=== PATIENT | female | born 1930 | race Caucasian/White ===

== ENCOUNTER 2016-10-04 14:56 | Inpatient (IN) | payer OTHER ==
--- NOTE | 2016-10-04 15:40 | ED EKG INTERP ---
EKG Interpretation - EKG Time of EKG reading by physician:: 15:24 EKG Read and Signed by:: Frank Arteaga EKG Interpretation (*Must complete 3 of following elements*): Abnormal Rate: 72 Rhythm: Normal sinus [place]: left QRS: LBB
[2016-10-04] MEDS ORDERED: MERREM 500 MG in NS 50 ML IV ONE (16:47)
[2016-10-04] MEDS ORDERED: NS 1,000 ML IV ONE (16:49)
[2016-10-04] MEDS ORDERED: NS 500 ML IV ONE (16:49)
[2016-10-04 17:10] LABS: MANUAL DIFF NEEDED? NO
[2016-10-04 17:10] LABS: URINE SOURCE CATH
[2016-10-04 17:18] LABS: BILIRUBIN URINE NEGATIVE (NEGATIVE); BLOOD URINE MODERATE (NEGATIVE); COLOR ORANGE; GLUCOSE URINE NEGATIVE (NEGATIVE); LEUKOCYTES URINE LARGE (NEGATIVE); NITRITE URINE NEGATIVE (NEGATIVE); PROTEIN URINE 100 mg/dL (NEGATIVE); SP GRAVITY URINE 1.013; TURBIDITY URINE TURBID (CLEAR); UROBILINOGEN URINE NORMAL (NORMAL)
[2016-10-04 17:21] LABS: URINE MICRO REVIEW NEEDED? YES
[2016-10-04 17:22] LABS: UR EPITHELIAL CELLS <10 /HPF (<10); URINE BACTERIA NEGATIVE /HPF; URINE CULTURE NEEDED? YES; URINE WBC TNTC /HPF (<10)
[2016-10-04 17:23] LABS: BASO% 0.2 % (0.0-0.8); EOS# 0.28 X1000 (0.0-0.7); EOS% 3.1 % (0.0-10.0); HEMATOCRIT 31.4 % (37.0-47.0); HEMOGLOBIN 9.8 g/dL (12.0-16.0); IMM GRAN# 0.06 X1000 (0.0-0.04); IMM GRAN% 0.7 % (0.0-0.5); LYMPH% 32.6 % (20.5-51.1); MCH 29.3 PG (27-31); MCHC 31.2 g/dL (33-37); MONO# 0.59 X1000 (0.11-0.59); MONO% 6.6 % (1.7-9.3); MPV 10.9 FL (7.4-10.4); NEUT% 56.8 % (42.2-75.2); PLT 300 X1000 (130-400); RBC 3.34 XMIL (4.2-5.4)
[2016-10-04 17:36] LABS: URINE CASTS EPITHELIAL PRESENT
[2016-10-04 18:20] LABS: ALBUMIN 3.5 g/dL (3.5-5.0); CALCIUM 8.6 mg/dL (8.8-10.2); POTASSIUM 3.8 mmol/L (3.5-5.1); TOTAL BILIRUBIN 0.17 mg/dL (0.20-1.00); TOTAL PROTEIN 7.5 g/dL (6.3-8.3)
--- NOTE | 2016-10-04 18:35 | HISTORY AND PHYSICAL ---
CHIEF COMPLAINT: Sent from the senior living for acute exacerbation of chronic kidney disease. HISTORY OF PRESENT ILLNESS: Ms. Silva is an 86-year-old, white female with frequent admissions here for recurrent acute pyelonephritis and exacerbation of chronic kidney disease. She has a long history of bilateral ureteral obstructions and her urologist is Dr. Florentin Estrada. He typically replaces the stents every 3-4 months. The last time this was done was June of last year. She was scheduled for replacement next week. Apparently, she was noted to have some cloudy urine at the senior living and lab work was done and Dr. Estrada, when he looked at the results, told them to send her to the hospital but I have no way to get these results and his office is already closed this afternoon. Her son is with her and says that for several days she has had decreased energy and spent most of the day in bed instead of getting up and going to the dining room for meals. She has been a little more cantankerous and confused. The symptoms are typical for her previous episodes of metabolic encephalopathy due to the pyelonephritis and dehydration. He is not aware of any fever. She is alert but confused. Unable to provide any meaningful history herself. She also has a history of type 2 diabetes mellitus, Alzheimer' s dementia, essential hypertension, dyslipidemia. PAST MEDICAL HISTORY: Chronic renal failure, stage 4, sometimes stage 5 depending her hydration status. She has a history of diabetes recently treated with very low-dose insulin. She has had multiple recurrent UTIs, some ESBL positive requiring meropenem for treatment. PAST SURGICAL HISTORY: Remarkable for multiple double-J bilaterally exchanges over the past 5 years or so. FAMILY HISTORY: Positive for diabetes, hypertension and generally noncontributory. SOCIAL HISTORY: She is a . She was in assisted living until June and went to rehab and stayed at the senior living after rehab was over as her dementia reduced her motivation to get out of bed and walk. She was transferred from [facility] to [facility] in [place] approximately 6 weeks ago. She has not used alcohol or tobacco. ALLERGIES: Codeine, morphine and cephalexin. HOME MEDICATIONS: Sodium bicarbonate 650 mg twice a day. Aspirin 81 mg daily. Bisoprolol 5 mg q.a.m. Vitamin B12 a 1000 mcg p.o. daily. Aricept 10 mg at bedtime. Pravastatin 40 mg at bedtime. There may be newer medications since her recent discharge that I am unaware of. REVIEW OF SYSTEMS: She is unable to provide history and son's history is limited to what is in the chief complaint above. PHYSICAL EXAMINATION: Alert, borderline combative elderly obese woman who seems to recognize me as well as her son. She is slightly pale but skin turgor is adequate. Pupils equal, round, reactive. Extraocular movements are intact. Oropharynx is remarkable for slightly tacky mucosa. NECK: Supple. No JVD, thyromegaly or bruits. LUNGS: Clear anteriorly to auscultation. CARDIAC EXAM: Regular rate and rhythm. No murmurs. ABDOMEN: Soft, nontender, with no guarding or rebound tenderness. Bowel sounds are slightly reduced but normally pitched and I do not appreciate any masses. There is no CVA tenderness. EXTREMITIES: Puffy ankles without pitting edema. No cyanosis or clubbing. NEUROLOGIC: She is confused and not oriented to time, place, but unable to recognize family. Her speech is clear and well articulated. There is no obvious facial asymmetry. Cranial nerve examination is unremarkable. She is able to move all extremities on command. DATABASE: White blood count 8900. Hemoglobin 9.8, hematocrit 31.4. Her baseline hemoglobin approximately 7.7 so I suspect she is dehydrated. Catheterization urinalysis shows moderate protein, moderate blood, ixa-lbtawvys-un-count white blood cells. Urine culture is pending. Chemistry profile was hemolyzed and repeat phlebotomy is pending. ASSESSMENT: 1. Acute metabolic encephalopathy with generalized weakness, disorientation and worsening of her dementia due to probably acute pyelonephritis and suspected dehydration and exacerbation of chronic kidney disease. Her fingerstick blood sugar is169 and it is not critical. 2. Type 2 diabetes mellitus. 3. Alzheimer's dementia. 4. History of essential hypertension. TREATMENT PLAN: We will check lab work, chemistry profile as soon as available. She has been given a dose of meropenem and some bolus of normal saline and some maintenance normal saline. She will be admitted to medical floor. Prognosis is quite limited due to her age, chronic debility and mostly to her chronic kidney disease, and dementia. I have discussed this poor prognosis with her son. [facility]
[2016-10-04] MEDS ORDERED: NS 1,000 ML IV SCH ×2 (18:40→19:56)
[2016-10-04] MEDS ORDERED: A & D OINTMENT TOP PRN (18:40)
[2016-10-04] MEDS: SODIUM BICARBONATE PO SCH (21:59)
[2016-10-04] MEDS: HEPARIN SUBQ SCH (21:59)
[2016-10-04] MEDS: PRAVACHOL PO SCH (21:59)
[2016-10-04] MEDS: ARICEPT PO SCH (21:59)
[2016-10-05] MEDS: MERREM 500 MG in NS 50 ML IV SCH ×2 (05:47→18:53)
[2016-10-05] MEDS: TYLENOL PO PRN (06:33)
[2016-10-05] MEDS: NS 1,000 ML IV SCH ×3 (09:39→18:12)
[2016-10-05] MEDS: ASPIRIN EC PO SCH (09:40)
[2016-10-05] MEDS: HEPARIN SUBQ SCH ×2 (09:41→20:38)
[2016-10-05] MEDS: SODIUM BICARBONATE PO SCH ×3 (09:41→20:44)
--- NOTE | 2016-10-05 20:20 | CONSULTATION ---
DATE OF CONSULTATION: 10/05/2016 ATTENDING AND REFERRING PHYSICIAN: Darrick Nicholson M.D. HISTORY OF PRESENT ILLNESS: This 86-year-old female has a history of Alzheimer's dementia and recurrent urinary infections. She also has renal insufficiency. She last had her stents changed in early July 2016. At that time her creatinine was 4.4. After stents were changed her creatinine came down to 3.7 at discharge. She was scheduled for stent change last week but had been admitted to the hospital with increasing mental confusion and probable urinary tract infection. PAST MEDICAL HISTORY: Chronic renal failure, diabetes as noted in the HPI, hypertension, elevated cholesterol, gastroesophageal reflux disease, history of ovarian cancer. CURRENT MEDICATIONS: Documented on the chart. PAST SURGICAL HISTORY: Hysterectomy with bilateral oophorectomy, multiple surgeries for kidney stones, history of ovarian cancer, multiple cystoscopic examinations with stent changes, the last in July 2016. SOCIAL HISTORY: She lives in a shelter. There is no current tobacco or alcohol use. REVIEW OF SYSTEMS: She is allergic to morphine. She currently appears to be in a good mood. She has no history of chest pain, recent pulmonary or bowel problems. There is no history of stroke or seizures. She does have dementia. PHYSICAL EXAMINATION: General: An obese, age apparent, normally developed, white female, who is somewhat confused, but cooperative. HEENT: Normal for age. Lungs: Clear. Cardiovascular: Regular rate and rhythm with holosystolic murmur. Abdomen: Obese, soft, nontender. No hepatosplenomegaly or masses. Normal bowel sounds. Genitourinary Examination: Deferred until surgery. Extremities: No clubbing, cyanosis, or edema. Neurologic: No focal deficits. LABORATORY EVALUATION: White count of 8.9, hemoglobin 9.8, hematocrit 31.4, platelets 300,000. Sodium is 138, potassium 3.8, chloride 97, bicarb 22, BUN 104, creatinine 4.2. IMPRESSION: Patient with multiple medical problems of bilateral ureteral obstruction with a large bladder diverticulum resulting in recurrent urinary tract infections. PLAN: Cystoscopic examination and change bilateral double-J stents. The planned procedure, benefits versus risks, possible complications, including, but not limited to, bleeding, infection, not being able to change the stents was discussed with the patient. I do not believe she understood. This will again be discussed with her son who is the guardian. Thank you for this consultation.
[2016-10-05] MEDS: PRAVACHOL PO SCH ×2 (20:35→20:45)
[2016-10-05] MEDS: ARICEPT PO SCH ×2 (20:35→20:44)
[2016-10-06] MEDS: NS 1,000 ML IV SCH (04:09)
[2016-10-06] MEDS: MERREM 500 MG in NS 50 ML IV SCH ×2 (06:03→18:57)
[2016-10-06 07:43] LABS: CALCIUM 7.7 mg/dL (8.8-10.2); POTASSIUM 3.4 mmol/L (3.5-5.1)
[2016-10-06] MEDS ORDERED: DIFLUCAN PO ONE (09:05)
[2016-10-06] MEDS: HEPARIN SUBQ SCH ×3 (11:39→20:25)
[2016-10-06] MEDS ORDERED: DIPRIVAN 1% ONE (13:05)
[2016-10-06] MEDS ORDERED: NS 1,000 ML ONE (13:46)
[2016-10-06] MEDS ORDERED: XYLOCAINE-MPF 2% ONE (13:46)
[2016-10-06] MEDS ORDERED: EXTENSION SET 32 IN 4522 ONE (13:46)
[2016-10-06] MEDS ORDERED: EPHEDRINE ONE (13:46)
[2016-10-06] MEDS ORDERED: PIGGYBACK SET 7393 ONE (13:46)
[2016-10-06] MEDS: SODIUM BICARBONATE PO SCH ×2 (14:32→20:25)
[2016-10-06] MEDS: LR 1,000 ML IV SCH (14:32)
[2016-10-06] MEDS: ASPIRIN EC PO SCH (14:32)
--- NOTE | 2016-10-06 15:39 | Diag Imaging Result Document ---
PROCEDURE NAME: FLUROSCOPY CYSTO - 10/06/2016 FLUOROSCOPY: INDICATION: Bilateral stent exchange. FINDINGS: 11 images were submitted. Bilateral pigtail stents are noted. Both stents are exchanged utilizing a guidewire. Following the exchange both stents appear to be in satisfactory position. IMPRESSION: No adverse features following bilateral double pigtail stent exchange.
[2016-10-06] MEDS: PRAVACHOL PO SCH (20:25)
[2016-10-06] MEDS: ARICEPT PO SCH (20:25)
--- NOTE | 2016-10-06 20:32 | OPERATIVE NOTE ---
PROCEDURE DATE: SURGEON: Florentin Estrada MD PREOPERATIVE DIAGNOSIS: Bilateral ureteral obstruction and renal insufficiency. POSTOPERATIVE DIAGNOSIS: Bilateral ureteral obstruction and renal insufficiency. PROCEDURE PERFORMED: Cystoscopic exam, exchange bilateral double-J stents. ANESTHESIA: General via laryngeal mask. FINDINGS: Cystoscopic exam: Urethra. Greater than 21 Citizen [place] without stricture. The ureteral orifice is up behind the pubic bone. Bladder. Normal ureteral orifices with double-J stents in place bilaterally. There is mild stone encrustation. There is a large bladder diverticulum located in the midposterior wall. No papillary lesions. exam: Normal external female. Atrophic mucosa. Mild edema of the labia majora. No adnexal masses. Surgically absent cervix and uterus. INDICATION FOR PROCEDURE: This 86-year-old female has a long history of bilateral ureteral obstruction. 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 She was recently admitted with mental status changes and probable urinary tract infection. DESCRIPTION OF PROCEDURE: After informed consent was obtained from the patient and family and her receiving IV antibiotics, she was taken to the main OR cystoscopy room and placed in supine position. General anesthesia via laryngeal mask was achieved. She was then placed in the low lithotomy position and prepped and draped in the usual sterile fashion for cystoscopic exam. A 21- Citizen [place] cystoscope was passed to the patient's urethra and into the bladder with findings as noted above. A 0.035 inch ZIPwire was passed through the cystoscope, engaged the right ureteral orifice and the ZIPwire was passed beside the indwelling double-J stent and up into the kidney. The old double-J stent was removed and a new 7-Citizen [place], 24 cm double-J stent was passed over the ZIPwire and up into the right kidney. The stent removal string was removed. Left side was accomplished similarly, except a 22 cm double-J stent could be used on the left side. The bladder was left distended. The cystoscope was removed and a 16-Citizen Of [place] Carlton catheter was passed through the patient's urethra and up into the bladder without difficulty; 10 mL sterile water placed in Carlton's balloon. The Carlton was placed to gravity drain. The efflux was clear. She tolerated the procedure well. Estimated blood loss was zero. She was taken to recovery room in good condition.
[2016-10-07] MEDS: MERREM 500 MG in NS 50 ML IV SCH ×2 (05:45→17:51)
[2016-10-07] MEDS: HEPARIN SUBQ SCH ×2 (09:47→21:04)
[2016-10-07] MEDS: LR 1,000 ML IV SCH (09:47)
[2016-10-07] MEDS: SODIUM BICARBONATE PO SCH ×2 (09:47→21:04)
[2016-10-07] MEDS: ASPIRIN EC PO SCH (09:47)
[2016-10-07] MEDS: DIFLUCAN PO SCH (09:47)
--- NOTE | 2016-10-07 12:39 | Diag Imaging Result Document ---
PROCEDURE NAME: CHEST-PORTABLE - 10/07/2016 SINGLE FRONTAL RADIOGRAPH OF THE CHEST: COMPARISON: 07/20/2016. FINDINGS: Inspiration is suboptimal. The lungs are grossly clear. There is no evidence of large pleural fluid collection. Cardiac silhouette appears somewhat prominent, perhaps due to magnification from AP technique. It is stable. Central vasculature is unremarkable. IMPRESSION: Poor inspiration and suggestion of stable cardiomegaly. No definite acute pathology otherwise.
[2016-10-07] MEDS: ARICEPT PO SCH (21:03)
[2016-10-07] MEDS: TYLENOL PO PRN (21:03)
[2016-10-07] MEDS: PRAVACHOL PO SCH (21:04)
[2016-10-08] MEDS: MERREM 500 MG in NS 50 ML IV SCH ×2 (05:48→17:39)
[2016-10-08 06:55] LABS: MANUAL DIFF NEEDED? NO
[2016-10-08 07:02] LABS: BASO% 0.2 % (0.0-0.8); EOS# 0.25 X1000 (0.0-0.7); EOS% 4.8 % (0.0-10.0); HEMATOCRIT 30.2 % (37.0-47.0); HEMOGLOBIN 8.9 g/dL (12.0-16.0); IMM GRAN# 0.04 X1000 (0.0-0.04); IMM GRAN% 0.8 % (0.0-0.5); LYMPH# 2.23 X1000 (1.2-3.4); LYMPH% 42.4 % (20.5-51.1); MCH 28.4 PG (27-31); MCHC 29.5 g/dL (33-37); MCV 96.5 FL (81-99); MONO# 0.45 X1000 (0.11-0.59); MONO% 8.6 % (1.7-9.3); MPV 9.8 FL (7.4-10.4); NEUT% 43.2 % (42.2-75.2); PLT 216 X1000 (130-400); RBC 3.13 XMIL (4.2-5.4)
[2016-10-08 07:26] LABS: CALCIUM 8.2 mg/dL (8.8-10.2)
--- NOTE | 2016-10-08 07:26 | DISCHARGE SUMMARY ---
ADMISSION DATE: 10/04/2016 DISCHARGE DATE: DATE OF DISCHARGE (ANTICIPATED): 10/08/2016 FINAL DIAGNOSES: 1. Metabolic encephalopathy secondary to #2. 2. Acute pyelonephritis. 3. Exacerbation of chronic kidney disease due to dehydration. 4. Type 2 diabetes mellitus. 5. History of essential hypertension. 6. Alzheimer's dementia, moderate in severity. HISTORY OF PRESENT ILLNESS: Ms. Silva is an 86-year-old, , white female, resident of [facility] in [facility] who presented with a 3 to 4 day history of decreased ability to get out of bed. She had a urinalysis, urine culture, and blood work done recently which showed a BUN of 104, creatinine of 4.5, and an E. coli urinary tract infection resistant to most antibiotics. She was sent to the emergency room for further evaluation and management. She has a long history of multiple similar admissions. She has a history of chronic bilateral ureteral obstruction requiring bilateral double-J stents. These stents need to be replaced every 3-4 months. She is somewhat overdue for this. Physical examination revealed a morbidly obese, confused, elderly woman. Pupils were equal and reactive. Oropharynx was remarkable for tacky mucosa. Neck was supple with no JVD. Lungs were clear. Cardiac exam unremarkable. Abdomen was soft, obese, and nontender without guarding or rebound tenderness. Bowel sounds were unremarkable. Please see dictated history and physical for further details. HOSPITAL COURSE: She was admitted to the medical floor. Treated with intravenous fluids and intravenous antibiotics. Meropenem was chosen due to previous extended spectrum beta lactamase producing organisms cultured from her urine. The culture from the [facility] documents such an E. coli bacteria and a culture done here grew yeast. I believe she had been partially treated at the [facility] with several doses of Augmentin. With vigorous IV hydration, her creatinine dropped to [address] Estrada felt she was stable enough to take to the operating room on Sunday afternoon for the stent exchange. This was accomplished uneventfully. Today, she is improved. Her son, Solitario, requested that she be returned to the [facility] on Sunday and they have agreed, providing they can get a prescription for her antibiotic. She will be returned on the same medications plus the addition of 5 days of meropenem and 7 days of oral Diflucan. She will require ambulance transport due to her morbid obesity, generalized weakness, and extremely high fall risk.
[2016-10-08] MEDS: SODIUM BICARBONATE PO SCH ×2 (09:02→20:55)
[2016-10-08] MEDS: ASPIRIN EC PO SCH (09:02)
[2016-10-08] MEDS: HEPARIN SUBQ SCH ×2 (09:02→20:56)
[2016-10-08] MEDS: DIFLUCAN PO SCH (09:03)
--- NOTE | 2016-10-08 10:00 | PROGRESS NOTE ---
DATE: 10/08/2016 SUBJECTIVE: The patient is sitting up in bed, eating breakfast. She is very railroad yard worker. She is interactive and pleasant. She expresses no complaints. OBJECTIVE: Vital Signs: T-max is 99.1 degrees, temperature now is 98.8, blood pressure 135/54, heart rate 71, respiratory rate 23. Physical Examination: General: She is a well-developed, obese, white female, in no acute distress. She is very happy. Lungs: Generally clear. Cardiovascular: Regular at approximately 70 beats per minute. ASSESSMENT AND PLAN: The patient was scheduled to be transferred to [facility] today but they are unable to take her until tomorrow morning. All of the discharge medications and dictations have been done by Dr. Nicholson ahead of time. We will maintain her here at the hospital with no change in the overall treatment. She will be discharged to [facility] tomorrow.
[2016-10-08] MEDS: LR 1,000 ML IV SCH (12:28)
[2016-10-08] MEDS: ARICEPT PO SCH (20:55)
[2016-10-08] MEDS: PRAVACHOL PO SCH (20:55)
--- NOTE | 2016-10-09 02:38 | DISCHARGE SUMMARY ---
ADMISSION DATE: 10/04/2016 DISCHARGE DATE: 10/07/2016 ADDENDUM REPORT She needs to return to the long-term tomorrow morning. Please make this STAT.
[2016-10-09] MEDS: MERREM 500 MG in NS 50 ML IV SCH (05:16)
[2016-10-09 07:39] VITALS: BP 140/76
[2016-10-09] MEDS: ASPIRIN EC PO SCH (09:18)
[2016-10-09] MEDS: DIFLUCAN PO SCH (09:18)
[2016-10-09] MEDS: HEPARIN SUBQ SCH (09:19)
[2016-10-09] MEDS: SODIUM BICARBONATE PO SCH (09:19)
== END 2016-10-09 09:46 | DRG 689 ==
LOC: ED 14:56 → EDIPHOLD 18:54 → 3N 10-05 12:43
PROVIDERS: ADMIT Internal Medicine; ATTEND Internal Medicine
PROC: 0T788DZ Dilation of Bilateral Ureters with Intraluminal Device, Via Natural or Artificial Opening Endoscopic (ICD-10-PCS; 2016-10-06)
PROC: 0TP98DZ Removal of Intraluminal Device from Ureter, Via Natural or Artificial Opening Endoscopic (ICD-10-PCS; principal; 2016-10-06 12:14)
DX: N13.6 Pyonephrosis (principal); G93.41 Metabolic encephalopathy; N18.4 Chronic kidney disease, stage 4 (severe); G30.9 Alzheimer's disease, unspecified; F05 Delirium due to known physiological condition; E11.22 Type 2 diabetes mellitus with diabetic chronic kidney disease; I12.9 Hypertensive chronic kidney disease with stage 1 through stage 4 chronic kidney disease, or unspecified chronic kidney disease; E86.0 Dehydration; Z96.0 Presence of urogenital implants; F02.80 Dementia in other diseases classified elsewhere, unspecified severity, without behavioral disturbance, psychotic disturbance, mood disturbance, and anxiety; E78.00 Pure hypercholesterolemia, unspecified; K21.9 Gastro-esophageal reflux disease without esophagitis; N32.3 Diverticulum of bladder; B96.29 Other Escherichia coli [E. coli] as the cause of diseases classified elsewhere; E66.01 Morbid (severe) obesity due to excess calories; Z83.3 Family history of diabetes mellitus; Z82.49 Family history of ischemic heart disease and other diseases of the circulatory system; Z79.82 Long term (current) use of aspirin; Z79.899 Other long term (current) drug therapy; Z85.43 Personal history of malignant neoplasm of ovary; Z87.442 Personal history of urinary calculi; Z91.81 History of falling
CPT/HCPCS: 51702; 71010; 76000; 80048; 80053; 81001; 82948; 85025; 87040; 87088; 96365; 96372; J1644; J2185; J7030; J7040; J7120; 97530-GP

== ENCOUNTER 2016-12-04 09:27 | Day surgery (SDC) | payer OTHER ==
[2016-12-04 10:29] LABS: MPV 9.7 FL (7.4-10.4)
[2016-12-04 10:39] LABS: INR 0.95; PROTIME 10.1 Seconds (9.2-11.7); PTT 26.5 Seconds (22.0-36.0)
[2016-12-04] MEDS ORDERED: NS 250 ML ONE (11:28)
--- NOTE | 2016-12-04 14:10 | Diag Imaging Result Document ---
PROCEDURE NAME: CHEST-PORTABLE - 12/04/2016 AP PORTABLE CHEST AT 1230 HOURS: FINDINGS: There is a PICC line on the right with its tip in the superior vena cava. The inspiration is slightly better than on 10/07/2016. Otherwise, there has been no significant change. IMPRESSION: PICC line as described.
== END 2016-12-04 13:25 ==
LOC: CATH 09:27
PROVIDERS: ATTEND General Practice
DX: E86.0 Dehydration (principal)
CPT/HCPCS: 36569; 71010; 85049; 85610; 85730; J7050

== ENCOUNTER 2016-12-14 05:35 | Day surgery (SDC) | payer OTHER ==
[2016-12-14 05:34] LABS: MANUAL DIFF NEEDED? NO
[2016-12-14 05:41] LABS: BASO% 0.2 % (0.0-0.8); EOS# 0.36 X1000 (0.0-0.7); EOS% 4.4 % (0.0-10.0); HEMATOCRIT 29.2 % (37.0-47.0); IMM GRAN# 0.04 X1000 (0.0-0.04); IMM GRAN% 0.5 % (0.0-0.5); LYMPH# 2.34 X1000 (1.2-3.4); LYMPH% 28.9 % (20.5-51.1); MCH 29.9 PG (27-31); MCHC 30.8 g/dL (33-37); MONO# 0.62 X1000 (0.11-0.59); MONO% 7.6 % (1.7-9.3); MPV 9.8 FL (7.4-10.4); NEUT% 58.4 % (42.2-75.2); PLT 289 X1000 (130-400); RBC 3.01 XMIL (4.2-5.4)
[2016-12-14] MEDS ORDERED: LR 0 ML ONE (05:48)
[2016-12-14 05:55] LABS: ALBUMIN 2.7 g/dL (3.5-5.0); CALCIUM 8.6 mg/dL (8.8-10.2); POTASSIUM 3.6 mmol/L (3.5-5.1); TOTAL BILIRUBIN 0.23 mg/dL (0.20-1.00); TOTAL PROTEIN 6.8 g/dL (6.3-8.3)
[2016-12-14] MEDS ORDERED: LEVAQUIN 250 MG/D5W 50 ML IV ONE (06:00)
[2016-12-14] MEDS ORDERED: 1/2 NS 500 ML ONE (06:01)
[2016-12-14] MEDS ORDERED: ZEBETA PO ONE (06:30)
[2016-12-14] MEDS ORDERED: HEPARIN ONE (06:36)
[2016-12-14] MEDS ORDERED: MARCAINE 0.25% PF/EPI 1:200,000 ONE (06:36)
[2016-12-14] MEDS ORDERED: XYLOCAINE 1%/EPI 1:100,000 ONE (06:36)
[2016-12-14] MEDS ORDERED: NS 250 ML ONE (06:37)
--- NOTE | 2016-12-14 07:52 | EKG Report ---
Test Performed on : 12/14/2016 06:30:34 AM Test Reason : per MD order Blood Pressure : / mmHG Vent. Rate : 061 BPM Atrial Rate : 061 BPM P-R Int : 000 ms QRS Dur : 106 ms QT Int : 392 ms P-R-T Axes : 000 -49 130 degrees QTc Int : 394 ms Junctional rhythm. Left axis deviation Low voltage QRS Possible Anterolateral infarct , age undetermined Abnormal ECG When compared with ECG of 04-OCT-2016 15:24, Junctional rhythm. has replaced Sinus rhythm. Left bundle branch block is no longer present Borderline criteria for Anterior infarct are now present Borderline criteria for Anterolateral infarct are now present Confirmed by Rachel COLEY, Feliciano Reyes ([id number]) on 12/16/2016 1:13:46 PM
--- NOTE | 2016-12-14 08:06 | Diag Imaging Result Document ---
PROCEDURE NAME: CHEST-2 VIEWS - 12/14/2016 AP AND LATERAL RADIOGRAPH OF THE CHEST: COMPARISON: 12/04/2016. FINDINGS: Inspiration is suboptimal. There has been interval removal of the right PICC line. There is suggestion of mild focal scarring in the left mid to lower lung zone projecting over the left heart border that is approximately stable. There is stable elevation of the right hemidiaphragm. No new consolidation is appreciated. There is stable cardiomegaly. IMPRESSION: Interval removal of the right PICC line but essentially stable chest, otherwise. No definite acute pathology.
[2016-12-14] MEDS ORDERED: KETAMINE (DOSE) ONE (09:17)
[2016-12-14] MEDS ORDERED: DIPRIVAN 1% ONE (09:18)
--- NOTE | 2016-12-14 09:56 | Diag Imaging Result Document ---
PROCEDURE NAME: CHEST-PORTABLE - 12/14/2016 PORTABLE CHEST 0920 HOURS: Compared with the earlier chest 2-views of the same day (12/14/2016). FINDINGS: There has been interval placement of a right subclavian central venous catheter. The tip of the central venous catheter is at the expected location of the right atrium. There is no evidence of pneumothorax. There is stable cardiomegaly. The lungs appear clear except for slight scarring. IMPRESSION: Tip of central venous catheter in right atrium. No evidence of pneumothorax.
--- NOTE | 2016-12-14 09:57 | OPERATIVE NOTE ---
PROCEDURE DATE: 12/15/2015 PREOPERATIVE DIAGNOSES: 1. Chronic renal failure. 2. Chronic urinary tract infections. 3. Lack of intravenous access. PROCEDURE: Attempted left [place] placement, right triple-lumen catheter. DESCRIPTION OF PROCEDURE: The patient was brought to the operating room. After satisfactory induction of IV and MAC anesthesia, her left chest and neck were prepped and draped in the appropriate manner. In the midclavicular line, an area 1 fingerbreadth below the clavicle was infiltrated with Xylocaine. A subcutaneous tunnel was infiltrated with Xylocaine as well. Attempts at subclavian access were unsuccessful. For this reason, under Doppler guidance, a counterincision was made at the base of the neck and the IJ was accessed. A guidewire was introduced into the right atrial area of the heart but the catheter itself did not thread. This was subsequently terminated. The right side of her neck and chest were subsequently prepped and draped and a triple-lumen catheter was placed. There were no complications. Patient was transferred to recovery for a chest x-ray. Estimated blood loss was 10-15 mL.
[2016-12-14] MEDS ORDERED: EPHEDRINE ONE (10:10)
[2016-12-14] MEDS ORDERED: XYLOCAINE-MPF 2% ONE (10:10)
[2016-12-14 10:54] VITALS: BP 145/63
== END 2016-12-14 10:50 | disposition other institution (70) ==
LOC: OR 05:35
PROVIDERS: ATTEND Surgery
DX: N18.9 Chronic kidney disease, unspecified (principal); N39.0 Urinary tract infection, site not specified; F03.90 Unspecified dementia, unspecified severity, without behavioral disturbance, psychotic disturbance, mood disturbance, and anxiety; I10 Essential (primary) hypertension; K21.9 Gastro-esophageal reflux disease without esophagitis; E11.9 Type 2 diabetes mellitus without complications; M19.90 Unspecified osteoarthritis, unspecified site; Z85.42 Personal history of malignant neoplasm of other parts of uterus
CPT/HCPCS: 71010; 71020; 77001; 80053; 85025; 93005; 93010; C1751; J7050; J7120